=== PATIENT | female | born 1995 | race Caucasian/White ===

== ENCOUNTER 2017-04-18 10:27 | Outpatient (CLI) | payer BC ==
--- NOTE | 2017-04-18 17:59 | Non Stress Test Report ---
Non Stress Test Datetime Report Generated by CPN: 04/18/2017 17:59 DEMOGRAPHIC EGA NST: 32.2 INDICATION Indication for Study: Ordered by Provider Indication for Study (NST) Other: nst MONITORING Monitor Explained: Monitor Explained; Test Explained; Patient Verbalized Understanding Time on Monitor: 04/11/2017 11:00 Time off Monitor: 04/18/2017 11:35 NST Duration: 04414 NST INTERVENTIONS NST Interventions: PO Hydration; Reposition Patient BABY A: [id number] BABY A Movement : Present Contraction Frequency : 0 FHR Baseline : 130 Accelerations : 15X15 Decelerations : None Variability : Moderate 6-25bpm NST Review: Meets Criteria for Reactive NST NST Review and Verified By : D Bellavance RNC NST Results: Reactive NST REPORT Report Trigger: Send Report
== END 2017-04-18 11:35 | disposition home or self-care (01) ==
LOC: LC 10:27
PROVIDERS: ATTEND Specialist
PROC: 4A1HXCZ Monitoring of Products of Conception, Cardiac Rate, External Approach (ICD-10-PCS; principal; 2017-04-18)
DX: Z34.93 Encounter for supervision of normal pregnancy, unspecified, third trimester (principal)
CPT/HCPCS: 59025

== ENCOUNTER 2017-05-03 08:42 | Outpatient (CLI) | payer BC ==
[2017-05-03] MEDS ORDERED: RINGERS SOLUTION,LACTATED 1,000 ML IV PRN (08:52)
[2017-05-03] MEDS ORDERED: RINGERS SOLUTION,LACTATED 1,000 ML IV ONE (08:52)
[2017-05-03 09:34] LABS: APPEARANCE,URINE SLIGHTLY-CLOUDY; BILIRUBIN,URINE NEGATIVE (NEGATIVE); GLUCOSE, URINE NEGATIVE (NEGATIVE); KETONES,URINE NEGATIVE (NEGATIVE); LEUKOCYTE ESTERASE,URINE SMALL (NEGATIVE); NITRITE,URINE NEGATIVE (NEGATIVE); PROTEIN,URINE NEGATIVE (NEGATIVE); URINE SPECIFIC GRAVITY 1.008; UROBILINOGEN,URINE NEGATIVE mg/dL (<2.0)
[2017-05-03 09:36] LABS: URINE BARBITURATES SCREEN NEGATIVE; URINE METHADONE SCREEN NEGATIVE; URINE OPIATES LOW NEGATIVE; URINE PHENCYCLIDINE SCREEN NEGATIVE
[2017-05-03 09:55] LABS: ABSOLUTE EOSINOPHILS # (AUTO) 0.1 10^3/uL (0.0-0.6); ABSOLUTE LYMPHOCYTES (AUTO) 1.2 10^3/uL (0.5-4.7); ABSOLUTE MONOCYTES (AUTO) 0.5 10^3/uL (0.1-1.4); ABSOLUTE NEUT (AUTO) 4.4 10^3/uL (1.7-8.2); BASOPHILS % (AUTO) 0.4 % (0-2); EOSINOPHILS % (AUTO) 1.9 % (0-6); HEMATOCRIT 37.4 % (36.0-47.0); HEMOGLOBIN 12.9 g/dL (12.0-15.5); HGB HCT DIFFERENCE 1.3; LYMPHOCYTES % (AUTO) 19.3 % (13-45); MEAN CORPUSCULAR HEMOGLOBIN 29.5 pg (27.0-33.4); MEAN CORPUSCULAR HGB CONC 34.5 g/dL (32.0-36.0); MEAN CORPUSCULAR VOLUME 86 fl (80-97); RED BLOOD COUNT 4.37 10^6/uL (3.72-5.28); RED CELL DISTRIBUTION WIDTH 13.5 % (11.5-14.0); SEGMENTED NEUTROPHILS % (AUTO) 70.4 % (42-78); WHITE BLOOD COUNT 6.2 10^3/uL (4.0-10.5)
[2017-05-03] MEDS ORDERED: TERBUTALINE SULFATE INJ/PF 1 MG/1 ML SDV ONE (10:04)
--- NOTE | 2017-05-03 12:23 | Non Stress Test Report ---
Non Stress Test Datetime Report Generated by CPN: 05/03/2017 12:22 DEMOGRAPHIC EGA NST: 36.6 INDICATION Indication for Study: Ordered by Provider MONITORING Monitor Explained: Monitor Explained; Test Explained; Patient Verbalized Understanding Time on Monitor: 05/03/2017 09:14 Time on Monitor: 05/03/2017 11:26 Time off Monitor: 05/03/2017 12:04 Time off Monitor: 05/03/2017 12:04 NST Duration: 170 NST INTERVENTIONS NST Interventions: IV Fluids Physician Notified NST: DrLeona Farhad BABY A: [id number] BABY A Movement : Present Contraction Frequency : 0 Contraction Frequency : none FHR Baseline : 140 Accelerations : 15X15 Decelerations : None Variability : Moderate 6-25bpm Variability : Moderate 6-25bpm NST Review: Meets Criteria for Reactive NST NST Review and Verified By : Siva Red RN NST Results: Reactive NST REPORT Report Trigger: Send Report
== END 2017-05-03 12:13 | disposition home or self-care (01) ==
LOC: LC 08:42
PROVIDERS: ATTEND Obstetrics & Gynecology
DX: O32.9XX1 Maternal care for malpresentation of fetus, unspecified, fetus 1 (principal); Z3A.36 36 weeks gestation of pregnancy
CPT/HCPCS: 59025; 86900; 86901; 36415; 86850; 85025; 86592; 81001; 80307; J3105

== ENCOUNTER 2017-05-10 18:23 | Outpatient (CLI) | payer BC ==
[2017-05-10 18:57] LABS: APPEARANCE,URINE SLIGHTLY-CLOUDY; BILIRUBIN,URINE NEGATIVE (NEGATIVE); GLUCOSE, URINE NEGATIVE (NEGATIVE); KETONES,URINE NEGATIVE (NEGATIVE); LEUKOCYTE ESTERASE,URINE MODERATE (NEGATIVE); NITRITE,URINE NEGATIVE (NEGATIVE); PROTEIN,URINE NEGATIVE (NEGATIVE); URINE SPECIFIC GRAVITY 1.003; UROBILINOGEN,URINE NEGATIVE mg/dL (<2.0)
[2017-05-10 19:18] LABS: URINE BARBITURATES SCREEN NEGATIVE; URINE METHADONE SCREEN NEGATIVE; URINE OPIATES LOW NEGATIVE; URINE PHENCYCLIDINE SCREEN NEGATIVE
--- NOTE | 2017-05-10 19:31 | Non Stress Test Report ---
Non Stress Test Datetime Report Generated by CPN: 05/10/2017 19:31 DEMOGRAPHIC EGA NST: 37.6 INDICATION Indication for Study: Decreased Movement; Ordered by Provider MONITORING Monitor Explained: Monitor Explained; Test Explained; Patient Verbalized Understanding Time on Monitor: 05/10/2017 18:41 Time off Monitor: 05/10/2017 19:24 NST Duration: 43 NST INTERVENTIONS NST Interventions: PO Hydration; Reposition Patient Physician Notified NST: Rodriguez BABY A: [id number] BABY A Movement : Present Contraction Frequency : none FHR Baseline : 155 Accelerations : 15X15 Decelerations : None Variability : Moderate 6-25bpm NST Review: Meets Criteria for Reactive NST NST Review and Verified By : Marilin Mensah RN NST Results: Reactive NST REPORT Report Trigger: Send Report
== END 2017-05-10 19:31 | disposition home or self-care (01) ==
LOC: LC 18:23
PROVIDERS: ATTEND Student in an Organized Health Care Education/Training Program
PROC: 4A1HXCZ Monitoring of Products of Conception, Cardiac Rate, External Approach (ICD-10-PCS; principal; 2017-05-10)
DX: O47.1 False labor at or after 37 completed weeks of gestation (principal); Z3A.37 37 weeks gestation of pregnancy
CPT/HCPCS: 59025; 80307; 81005

== ENCOUNTER 2018-03-15 20:57 | Emergency (ER) | payer BC, MEDICAID ==
[2018-03-15 21:10] VITALS: BP 132/73
--- NOTE | 2018-03-16 00:31 | ER Document Report ---
ED General - General Chief Complaint: Insect Bite Stated Complaint: POSSIBLE ALLERGIC REACTION Time Seen by Provider: 03/15/18 23:14 Notes: Patient is a 22-year-old female without chronic medical problems who presents with bilateral proximal forearms just below the level of the antecubital fossa. The patient states that she noticed these several hours ago and that they have become progressively more red and swollen since that time. She notes a mild, aching pain similar to when something has become strained. She states movement of the arms worsens the discomfort. She has not tried anything to improve the discomfort. No history of similar symptoms in the past. She states that she believes she may have done this while loading a stroller into her car. She initially thought she might be having an allergic reaction but now doubts this given the symmetry of the areas of redness on the bilateral forearms. She has not seen her general doctor regarding today's concerns. TRAVEL OUTSIDE OF THE [place] IN LAST 30 DAYS: No - Related Data Allergies/Adverse Reactions: No Known Allergies Allergy (Verified 05/23/17 11:40) Past Medical History - General Information source: Patient - Social History Smoking Status: Never Smoker Chew tobacco use (# tins/day): No Frequency of alcohol use: None Drug Abuse: None Lives with: Spouse/Significant other Family History: Reviewed & Not Pertinent Patient has suicidal ideation: No Patient has homicidal ideation: No Renal/ Medical History: Denies: Hx Peritoneal Dialysis Past Surgical History: Reports: Hx Section Review of Systems - Review of Systems Notes: Constitutional: Negative for fever. HENT: Negative for sore throat. Eyes: Negative for visual changes. Cardiovascular: Negative for chest pain. Respiratory: Negative for shortness of breath. Gastrointestinal: Negative for abdominal pain, vomiting or diarrhea. Genitourinary: Negative for dysuria. Musculoskeletal: Negative for back pain. Skin: Positive for rash. Neurological: Negative for headaches, weakness or numbness. 10 point ROS negative except as marked above and in HPI. Physical Exam - Vital signs Vitals: Temp Pulse Resp BP Pulse Ox 97.8 F 95 16 132/73 H 100 03/15/18 21:09 03/15/18 21:09 03/15/18 21:09 03/15/18 21:09 03/15/18 21:09 Interpretation: Normal Notes: PHYSICAL EXAMINATION: GENERAL: Well-appearing, well-nourished and in no acute distress. HEAD: Atraumatic, normocephalic. EYES: Pupils equal round and reactive to light, extraocular movements intact, sclera anicteric, conjunctiva are normal. ENT: nares patent, oropharynx clear without exudates. Moist mucous membranes. NECK: Normal range of motion, supple without lymphadenopathy, no stridor LUNGS: Breath sounds clear to auscultation bilaterally and equal. No wheezes rales or rhonchi. HEART: Regular rate and rhythm without murmurs ABDOMEN: Soft, nontender, normoactive bowel sounds. No guarding, no rebound. No masses appreciated. EXTREMITIES: Normal range of motion, no pitting or edema. No cyanosis. NEUROLOGICAL: No focal neurological deficits. Moves all extremities spontaneously and on command. PSYCH: Normal mood, normal affect. SKIN: Warm, Dry, normal turgor, symmetric areas of redness on the bilateral forearms just below the level of the antecubital fossae bilaterally without induration or fluctuance Course - Re-evaluation Re-evalutation: 03/16/18 04:06 Presentation appears to most consistent with bilateral soft tissue contusions likely secondary to a blunt force trauma sustained across both forearms at the same time. There is no evidence of an allergic reaction as there are no urticarial lesions on complete skin examination, no stridor, no wheezing, no vascular involvement no GI symptoms. The remainder the physical examination is otherwise completely unremarkable. I do not see any indication for labs or imaging at this time point. I have recommended NSAIDs, application of ice to the area as well as strict return precautions. At this time will discharge with return precautions and follow-up recommendations. Verbal discharge instructions given a the bedside and opportunity for questions given. Medication warnings reviewed. Patient is in agreement with this plan and has verbalized understanding of return precautions and the need for primary care follow-up in the next 24-72 hours. - Vital Signs Vital signs: Temp Pulse Resp BP Pulse Ox 97.8 F 95 16 132/73 H 100 03/15/18 21:09 03/15/18 21:09 03/15/18 21:09 03/15/18 21:09 03/15/18 21:09 Discharge - Discharge Clinical Impression: Traumatic ecchymosis of forearm Qualifiers: Encounter type: initial encounter Laterality: unspecified laterality Qualified Code(s): S50.10XA - Contusion of unspecified forearm, initial encounter Condition: Good Disposition: HOME, SELF-CARE Additional Instructions: The area of redness on her forearm appears to be likely traumatic in origin. You can apply ice to the affected area as well as take NSAIDs such as ibuprofen 600 mg every 6 hours as needed for discomfort. Return for worsening swelling, difficulty using her hands, fever, or any other symptoms that are worrisome to you. Referrals: PRINCESS STEEL MD [Primary Care Provider] - Follow up as needed
== END 2018-03-16 00:38 | disposition home or self-care (01) ==
LOC: ER 20:57
DX: S50.10XA Contusion of unspecified forearm, initial encounter (principal); X58.XXXA Exposure to other specified factors, initial encounter; R21 Rash and other nonspecific skin eruption
CPT/HCPCS: 99281

== ENCOUNTER 2018-11-18 01:36 | Emergency (ER) | payer BC, MEDICAID ==
--- NOTE | 2018-11-18 07:50 | ER Document Report ---
ED Medical Screen (RME) - General Chief Complaint: Abdominal Pain Stated Complaint: BLOOD/CLOTS IN URINE,LOWER ABDOMINAL PAIN Time Seen by Provider: 11/18/18 07:17 Primary Care Provider: ARCADIO REYNOLDS DO [Primary Care Provider] - Follow up as needed Mode of Arrival: Ambulatory Information source: Patient Notes: Patient presents emergency department with complaints of pain when she voids and noted hematuria. Reports symptoms started yesterday. Denies fever vomiting diarrhea. Denies vaginal discharge. Reports that she noted some blood when she wiped after voiding yesterday. Last night around midnight when she voided she had pain at the end of her stream and noted tiny blood clots. Reports urinary frequency. I have greeted and performed a rapid initial assessment of this patient. A comprehensive ED assessment and evaluation of the patient, analysis of test results and completion of the medical decision making process will be conducted by additional ED providers. Dictation of this chart was performed using voice recognition software; therefore, there may be some unintended grammatical errors. TRAVEL OUTSIDE OF THE [place] IN LAST 30 DAYS: No - Related Data Allergies/Adverse Reactions: No Known Allergies Allergy (Verified 05/23/17 11:40) Past Medical History Renal/ Medical History: Denies: Hx Peritoneal Dialysis Past Surgical History: Reports: Hx Section Physical Exam - Vital signs Vitals: Temp Pulse Resp BP Pulse Ox 98.0 F 93 16 138/88 H 100 11/18/18 01:40 11/18/18 01:40 11/18/18 01:40 11/18/18 01:40 11/18/18 01:40 Course - Vital Signs Vital signs: Temp Pulse Resp BP Pulse Ox 98.0 F 93 16 138/88 H 100 11/18/18 01:40 11/18/18 01:40 11/18/18 01:40 11/18/18 01:40 11/18/18 01:40 Doctor's Discharge - Discharge Referrals: ARCADIO REYNOLDS DO [Primary Care Provider] - Follow up as needed
[2018-11-18 08:14] LABS: APPEARANCE,URINE CLOUDY; BILIRUBIN,URINE NEGATIVE (NEGATIVE); COLOR,URINE AMBER; GLUCOSE, URINE NEGATIVE (NEGATIVE); KETONES,URINE NEGATIVE (NEGATIVE); LEUKOCYTE ESTERASE,URINE LARGE (NEGATIVE); NITRITE,URINE POSITIVE (NEGATIVE); PROTEIN,URINE 100 mg/dL (NEGATIVE); URINE SPECIFIC GRAVITY 1.016; UROBILINOGEN,URINE NEGATIVE mg/dL (<2.0)
[2018-11-18] MEDS ORDERED: CEPHALEXIN 500 MG CAPSULE PO ONE (08:39)
[2018-11-18] MEDS ORDERED: PHENAZOPYRIDINE HCL 200 MG TABLET PO ONE (08:40)
[2018-11-18 09:19] VITALS: BP 148/86
--- NOTE | 2018-11-18 09:48 | ER Document Report ---
Entered by AJAY ROGER SCRIBE 11/18/18 0836 Acting as scribe for:MAHAD GIL MD ED General - General Chief Complaint: Abdominal Pain Stated Complaint: BLOOD/CLOTS IN URINE,LOWER ABDOMINAL PAIN Time Seen by Provider: 11/18/18 07:17 [facility] - Follow up as needed Mode of Arrival: Ambulatory Information source: Patient Notes: Patient is a 22 year old female with no significant medical history presents to the emergency department complaining of hematuria and painful urination onset yesterday. Patient states she noticed a small amount of hematuria and pain in her suprapubic region when urinating. Patient describes the pain as a sharpness that progressively worsens as she is voiding. She states this morning, the pain worsened and she noticed a larger amount of blood in her urine with small blood clots. She describes the blood as light pink in appearance. She also reports urinary frequency with normal amount of urine output. She denies any vaginal discharge. Patient's LMP was 11/05/2018. She follows up with [facility]. TRAVEL OUTSIDE OF THE [place] IN LAST 30 DAYS: No - Related Data Allergies/Adverse Reactions: No Known Allergies Allergy (Verified 05/23/17 11:40) Past Medical History - General Information source: Patient - Social History Smoking Status: Never Smoker Frequency of alcohol use: Occasional Drug Abuse: None Family History: Reviewed & Not Pertinent Patient has suicidal ideation: No Patient has homicidal ideation: No Past Surgical History: Reports: Hx Section Review of Systems - Review of Systems Constitutional: No symptoms reported EENT: No symptoms reported Cardiovascular: No symptoms reported Respiratory: No symptoms reported Gastrointestinal: No symptoms reported Genitourinary: See HPI, Burning, Hematuria, Urgency Female Genitourinary: No symptoms reported Musculoskeletal: No symptoms reported Skin: No symptoms reported Hematologic/Lymphatic: No symptoms reported Neurological/Psychological: No symptoms reported -: Yes All other systems reviewed and negative Physical Exam - Vital signs Vitals: Temp Pulse Resp BP Pulse Ox 98.0 F 93 16 138/88 H 100 11/18/18 01:40 11/18/18 01:40 11/18/18 01:40 11/18/18 01:40 11/18/18 01:40 - Notes Notes: GENERAL: Alert, interacts well. No acute distress. HEAD: Normocephalic, atraumatic. EYES: Pupils equal, round, and reactive to light. Extraocular movements intact. ENT: Oral mucosa moist, tongue midline. NECK: Full range of motion. Supple. Trachea midline. LUNGS: Clear to auscultation bilaterally, no wheezes, rales, or rhonchi. No respiratory distress. HEART: Regular rate and rhythm. No murmurs, gallops, or rubs. ABDOMEN: Soft, suprapubic tenderness to palpation. Non-distended. Bowel sounds present in all 4 quadrants. No guarding, rigidity, or rebound. EXTREMITIES: Moves all 4 extremities spontaneously. NEUROLOGICAL: Alert and oriented x3. Normal speech. PSYCH: Normal affect, normal mood. SKIN: Warm, dry, normal turgor. No rashes or lesions noted. Course - Vital Signs Vital signs: Temp Pulse Resp BP Pulse Ox 98.7 F 82 18 148/86 H 100 11/18/18 09:18 11/18/18 09:18 11/18/18 09:18 11/18/18 09:18 11/18/18 09:18 - Laboratory Laboratory results interpreted by me: 11/18/18 07:50 Urine Protein 100 H Urine Blood LARGE H Urine Nitrite POSITIVE H Ur Leukocyte Esterase LARGE H Discharge - Discharge Clinical Impression: Hemorrhagic cystitis Condition: Stable Disposition: HOME, SELF-CARE Additional Instructions: Urinary Tract Infection: Your evaluation indicates that you have a urinary tract infection. This is due to germs growing in the bladder. This is a common problem. This infection usually responds quickly to antibiotics. Your antibiotic should be taken exactly as prescribed. Drink plenty of fluids -- three to four quarts a day. Occasionally, a bladder anesthetic will be prescribed to help stop the feeling of urgency until the antibiotic has a chance to clear the infection. This may cause your urine to be dark orange. Certain urine infections require a culture. If the doctor obtained a culture, the results will be back in two days. You should call to see if a change in treatment is needed. A repeat urinalysis after you finish treatment is often recommended. The physician will let you know if further testing is required. Call the doctor if you develop fever, chills, flank pain, inability to urinate, or blood in the urine. Prescriptions: Cephalexin Monohydrate [Keflex 500 mg Capsule] 500 mg PO TID #15 capsule Phenazopyridine HCl [Pyridium 200 mg Tablet] 200 mg PO Q8 #10 tablet Referrals: [facility] [Provider Group] - Follow up as needed Scribe Attestation: 11/18/18 08:38 I personally performed the services described in the documentation, reviewed and edited the documentation which was dictated to the scribe in my presence, and it accurately records my words and actions. I personally performed the services described in the documentation, reviewed and edited the documentation which was dictated to the scribe in my presence, and it accurately records my words and actions.
== END 2018-11-18 09:19 | disposition home or self-care (01) ==
LOC: ER 01:36
DX: N30.91 Cystitis, unspecified with hematuria (principal)
CPT/HCPCS: 99283; 87086; 81025; 87088; 81001; 87186; J3490

== ENCOUNTER 2019-09-06 08:49 | Emergency (ER) | payer BC, MEDICAID ==
[2019-09-06] MEDS ORDERED: ONDANSETRON HCL INJ/PF 4 MG/2 ML SDV IV ONE (09:18)
[2019-09-06] MEDS ORDERED: NORMAL SALINE 1000 ML 1,000 ML IV ONE (09:19)
[2019-09-06] MEDS ORDERED: FENTANYL CITRATE INJ/PF 100 MCG/2 ML AMPUL IV ONE (09:19)
--- NOTE | 2019-09-06 09:20 | ER Document Report ---
ED Medical Screen (RME) - General Chief Complaint: Abdominal Pain Stated Complaint: ABDOMINAL PAIN/CRAMPING Time Seen by Provider: 09/06/19 09:18 Mode of Arrival: Ambulatory Information source: Patient Notes: Otherwise healthy 23-year-old female presents emergency department chief complaint of sudden onset abdominal pain that began at approximately 2 AM. Patient reports the pain started in the umbilicus area and sometimes radiates down towards the right lower quadrant. She reports pain is worse with movement. She reports the pain is constant and nothing makes it better. Patient reports associated nausea without vomiting or diarrhea. Denies fevers. Exam: Tenderness noted in the periumbilical area and right lower quadrant. I have greeted and performed a rapid initial assessment of this patient. A comprehensive ED assessment and evaluation of the patient, analysis of test results and completion of the medical decision making process will be conducted by additional ED providers. I have specifically instructed the patient or family members with the patient to immediately return to any nursing staff should anything change in the patient's condition or with their chief complaint. TRAVEL OUTSIDE OF THE [place] IN LAST 30 DAYS: No - Related Data Allergies/Adverse Reactions: No Known Allergies Allergy (Verified 09/06/19 09:00) Home Medications: Past Medical History - Social History Chew tobacco use (# tins/day): No Frequency of alcohol use: None Drug Abuse: None Renal/ Medical History: Denies: Hx Peritoneal Dialysis Past Surgical History: Reports: Hx Section Physical Exam - Vital signs Vitals: Temp Pulse Resp BP Pulse Ox 98.7 F 98 20 129/76 H 99 09/06/19 08:56 09/06/19 08:56 09/06/19 08:56 09/06/19 08:56 09/06/19 08:56 Course - Vital Signs Vital signs: Temp Pulse Resp BP Pulse Ox 98.7 F 98 20 129/76 H 99 09/06/19 08:56 09/06/19 08:56 09/06/19 08:56 09/06/19 08:56 09/06/19 08:56
[2019-09-06 09:30] LABS: ABSOLUTE EOSINOPHILS # (AUTO) 0.1 10^3/uL (0.0-0.6); ABSOLUTE LYMPHOCYTES (AUTO) 0.7 10^3/uL (0.5-4.7); ABSOLUTE MONOCYTES (AUTO) 0.4 10^3/uL (0.1-1.4); ABSOLUTE NEUT (AUTO) 6.1 10^3/uL (1.7-8.2); BASOPHILS % (AUTO) 0.1 % (0-2); EOSINOPHILS % (AUTO) 0.8 % (0-6); HEMATOCRIT 40.7 % (36.0-47.0); HEMOGLOBIN 13.4 g/dL (12.0-15.5); LYMPHOCYTES % (AUTO) 9.5 % (13-45); MEAN CORPUSCULAR HEMOGLOBIN 25.4 pg (27.0-33.4); MEAN CORPUSCULAR VOLUME 77 fl (80-97); PLATELET COUNT 271 10^3/uL (150-450); RED CELL DISTRIBUTION WIDTH 16.5 % (11.5-14.0); SEGMENTED NEUTROPHILS % (AUTO) 84.6 % (42-78); TOTAL CELLS COUNTED % (AUTO) 100 %; WHITE BLOOD COUNT 7.2 10^3/uL (4.0-10.5)
[2019-09-06 09:46] LABS: APPEARANCE,URINE SLIGHTLY-CLOUDY; BILIRUBIN,URINE NEGATIVE (NEGATIVE); COLOR,URINE YELLOW; GLUCOSE, URINE NEGATIVE (NEGATIVE); KETONES,URINE NEGATIVE (NEGATIVE); LEUKOCYTE ESTERASE,URINE TRACE (NEGATIVE); NITRITE,URINE NEGATIVE (NEGATIVE); PROTEIN,URINE NEGATIVE (NEGATIVE); URINE SPECIFIC GRAVITY 1.014; UROBILINOGEN,URINE NEGATIVE mg/dL (<2.0)
[2019-09-06 09:50] LABS: ALBUMIN 4.1 g/dL (3.5-5.0); ALKALINE PHOSPHATASE 65 U/L (38-126); ANION GAP 10 (5-19); ASPARTATE AMINO TRANSFERASE 20 U/L (14-36); BILIRUBIN,DIRECT 0.2 mg/dL (0.0-0.4); BILIRUBIN,TOTAL 0.5 mg/dL (0.2-1.3); BLOOD UREA NITROGEN 9 mg/dL (7-20); CALCIUM 9.1 mg/dL (8.4-10.2); CARBON DIOXIDE 23 mmol/L (22-30); CHLORIDE 104 mmol/L (98-107); GLUCOSE 98 mg/dL (75-110); POTASSIUM 4.2 mmol/L (3.6-5.0); TOTAL PROTEIN 7.5 g/dL (6.3-8.2)
--- NOTE | 2019-09-06 10:37 | ER Document Report ---
ED GI/ - General Chief Complaint: Abdominal Pain Stated Complaint: ABDOMINAL PAIN/CRAMPING Time Seen by Provider: 09/06/19 09:18 Primary Care Provider: TERESA ORDOÑEZ MD [Primary Care Provider] - Follow up as needed Mode of Arrival: Ambulatory Information source: Patient Notes: HPI: Patient is a 23-year-old -0-0-1 at 8 weeks by dates who presents today with some upper and lower abdominal "cramping" that is been intermittent. No nausea or vomiting. 2 bouts of nonbloody diarrhea. No dysuria, vaginal discharge, or fevers. She does state some upper and lower body "cramping". ROS: See HPI All other review of systems reviewed and otherwise negative Reviewed vital signs and nursing note as charted by RN. PHYSICAL EXAM: CONSTITUTIONAL: Alert and oriented and responds appropriately to questions. Well-appearing; well-nourished HEAD: Normocephalic; atraumatic EYES: PERRL; sclerae non-icteric ENT: Normal nose; no rhinorrhea; moist mucous membranes; pharynx without lesions noted NECK: Supple without meningismus; non-tender; no cervical lymphadenopathy, no masses CARD: Regular rate and rhythm; no murmurs; symmetric distal pulses RESP: Normal chest excursion without splinting or tachypnea; breath sounds clear and equal bilaterally; no wheezes, no rhonchi, no rales ABD/GI: Normal bowel sounds; non-distended; soft, patient has some mild tenderness actually to the left lower quadrant. No right lower quadrant or upper abdominal tenderness. No rebound or guarding. No palpable fundus BACK: The back appears normal and is non-tender to palpation EXT: Normal ROM in all joints; non-tender to palpation; no edema SKIN: No acute lesions noted NEURO: CN 2-12 intact; 5/5 bilateral upper and lower extremity strength with sensation intact to light touch PSYCH: The patient's mood and manner are appropriate. Grooming and personal hygiene are appropriate. TRAVEL OUTSIDE OF THE [place] IN LAST 30 DAYS: No - Related Data Allergies/Adverse Reactions: No Known Allergies Allergy (Verified 09/06/19 09:00) Home Medications: Past Medical History - General Information source: Patient - Social History Smoking Status: Never Smoker Chew tobacco use (# tins/day): No Frequency of alcohol use: None Drug Abuse: None Family History: Reviewed & Not Pertinent Patient has suicidal ideation: No Patient has homicidal ideation: No Renal/ Medical History: Denies: Hx Peritoneal Dialysis Past Surgical History: Reports: Hx Section Physical Exam - Vital signs Vitals: Temp Pulse Resp BP Pulse Ox 98.7 F 98 20 129/76 H 99 09/06/19 08:56 09/06/19 08:56 09/06/19 08:56 09/06/19 08:56 09/06/19 08:56 Course - Re-evaluation Re-evalutation: 09/06/19 10:37 Given the above history and physical examination we will order pelvic examination, ultrasound, basic labs and urinalysis, and reassess. There is a very high prevalence of a viral-like syndrome currently causing bouts of d iarrhea. I would like to check to make sure that there was no ectopic . Patient has no right lower quadrant tenderness upon repeat examination. 09/06/19 13:38 Labs, pelvic exam labs, urinalysis, quantitative hCG, and ultrasound as recorded. Patient currently denies any pain. Vital signs are stable. Ultrasound as recorded showing an 8-week 3-day gestation. Still no vaginal bleeding. Patient will be discharged home with strict return precautions and follow-up with the primary FINGERNAIL SCULPTURER. - Vital Signs Vital signs: Temp Pulse Resp BP Pulse Ox 98.7 F 98 20 129/76 H 99 09/06/19 08:56 09/06/19 08:56 09/06/19 08:56 09/06/19 08:56 09/06/19 08:56 - Laboratory Result Diagrams: 09/06/19 09:15 09/06/19 09:15 Laboratory results interpreted by me: 09/06/19 09/06/19 09/06/19 09:15 09:15 09:15 RBC 5.30 H MCV 77 L MCH 25.4 L RDW 16.5 H Lymph % (Auto) 9.5 L Seg Neutrophils % 84.6 H Sodium 136.6 L Creatinine 0.43 L Beta HCG, Quant 097193.00 H Ur Leukocyte Esterase TRACE H Discharge - Discharge Clinical Impression: Abdominal cramping Diarrhea Qualifiers: Diarrhea type: unspecified type Qualified Code(s): R19.7 - Diarrhea, unspecified Qualifiers: Weeks of gestation: 8 weeks Qualified Code(s): Z3A.08 - 8 weeks gestation of Condition: Good Disposition: HOME, SELF-CARE Additional Instructions: Come back immediately for any increased pain, change in location or quality of p ain, vaginal bleeding, weakness or numbness, fevers, or any other acute problems. Please follow-up with the primary care physician as we have discussed. Referrals: TERESA ORDOÑEZ MD [Primary Care Provider] - Follow up as needed
--- NOTE | 2019-09-06 10:57 | ER Document Report ---
Doctor's Note Notes: 09/06/19 10:56 Pelvic exam performed. Normal external genitalia noted. Thick white discharge noted in the vaginal vault. No cervical motion tenderness, no adnexal tenderness. Cervix closed. Patient tolerated well. Specimens sent to lab.
[2019-09-06 11:10] LABS: BACTERIA (WET MOUNT) 3+ BACTERIA SEEN; RBCS (WET MOUNT) RARE RBCS SEEN; T.VAGINALIS (WET MOUNT) NO TRICHOMONAS SEEN; WBCS (WET MOUNT) FEW WBCS SEEN; YEAST (WET MOUNT) NO YEAST SEEN
[2019-09-06 12:42] LABS: CHLAM PCR NOT DETECTED (NOT DETECT)
--- NOTE | 2019-09-06 13:33 | RADIOLOGY REPORT (SQ) ---
EXAM DESCRIPTION: U/S OB TRANSVAG W/DOPPLER COMPLETED DATE/TIME: 09/06/2019 12:43 pm REASON FOR STUDY: 33; pain COMPARISON: None. TECHNIQUE: Transvaginal static and realtime grayscale images acquired of the pelvis. Additional nikolas cted spectral and color Doppler images recorded. All images stored on PACs. bHC, 830 CLINICAL DATES: EGA 7 weeks 6 days LIMITATIONS: None. FINDINGS: FETUS: Single Living intrauterine noted at the right horn of the bicornuate [place]. ULTRASOUND EGA: 8 weeks 3 days ULTRASOUND YAN: 04/14/2020 EFW: Not applicable less than 20 weeks. CRL: 1.85 cm FHR: 180 beats per minute. AMNIOTIC FLUID: Adequate amount. PLACENTA: Not yet developed due to early gestation. SUBCHORIONIC BLEED: Yes. SIZE OF BLEED: 7 x 7 x 10 mm. UTERUS: There is a bicornuate uterus. The right side of the uterus measures 10.0 x 6.8 x 6.1 cm. Th e left side of the uterus measures 10 x 5.2 x 5.1 cm. An intrauterine gestation is noted at the right horn. The endometrium at the left horn measures 2.9 cm in double wall thickness with a 5 x 3 x 3 mm fluid c ollection. CERVICAL LENGTH: 3.0 cm. Closed. RIGHT ADNEXA: The right ovary measures 3.7 x 2.2 x 2.5 cm. Flow by Doppler was shown to the right ov jaya. There is a 2.4 x 1.5 x 1.6 cm corpus luteum cyst. LEFT ADNEXA: The left ovary measures 2.7 x 1 .7 x 1.4 cm. Flow by Doppler was shown to the left ovary. FREE FLUID: Small amount of free pelvic fluid. IMPRESSION: 1. BICORNUATE UTERUS. 2. LIVING INTRAUTERINE AT THE RIGHT HORN.EGA 8 WEEKS 3 DAYS. SMALL SUBCHORIONIC HEMORRHAGE . 3. THICKENED ENDOMETRIUM AT THE LEFT HORN WITH A SMALL FLUID COLLECTION. Trimester of : First trimester - 0 to 13 weeks. TECHNICAL DOCUMENTATION: JOB ID: [id number] [employer]- All Rights Reserved rev-12/14 Reading location - IP/workstation name: [email or web address]
[2019-09-06 14:11] VITALS: BP 114/66
== END 2019-09-06 14:09 | disposition home or self-care (01) ==
LOC: ER 08:49
DX: O26.891 Other specified pregnancy related conditions, first trimester (principal); R10.9 Unspecified abdominal pain; R19.7 Diarrhea, unspecified; R10.10 Upper abdominal pain, unspecified; R10.30 Lower abdominal pain, unspecified; Z3A.08 8 weeks gestation of pregnancy
CPT/HCPCS: 36415; 87210; 84702; 83690; 85025; 80053; 81001; 87491; 87591; 76817; 93976; J3010; J2405; J7030; 96361; 96374; 96375; 99284

== ENCOUNTER 2020-02-17 17:43 | Outpatient (CLI) | payer BC, MEDICAID ==
[2020-02-17 18:31] LABS: APPEARANCE,URINE CLEAR; BILIRUBIN,URINE NEGATIVE (NEGATIVE); COLOR,URINE YELLOW; GLUCOSE, URINE NEGATIVE (NEGATIVE); KETONES,URINE NEGATIVE (NEGATIVE); LEUKOCYTE ESTERASE,URINE NEGATIVE (NEGATIVE); NITRITE,URINE NEGATIVE (NEGATIVE); PROTEIN,URINE NEGATIVE (NEGATIVE); UROBILINOGEN,URINE NEGATIVE mg/dL (<2.0)
[2020-02-17 18:44] LABS: URINE AMPHETAMINES SCREEN NEGATIVE; URINE BARBITURATES SCREEN NEGATIVE; URINE BENZODIAZEPINES SCREEN NEGATIVE; URINE COCAINE SCREEN NEGATIVE; URINE MARIJUANA (THC) SCREEN NEGATIVE; URINE METHADONE SCREEN NEGATIVE; URINE PHENCYCLIDINE SCREEN NEGATIVE
--- NOTE | 2020-02-17 19:55 | RADIOLOGY REPORT (SQ) ---
EXAM DESCRIPTION: U/S OB LIMITED IMAGES COMPLETED DATE/TIME: 02/17/2020 7:05 pm REASON FOR STUDY: TVUS for cervical length COMPARISON: None. TECHNIQUE: Limited transvaginal grayscale ultrasound for evaluation of specific requested obstetrica l parameters. LIMITATIONS: None. FINDINGS: CERVICAL LENGTH: 4.1 cm. Closed. JENNA: 13.2 cm. Cm. FHR: 147 beats per minute. PRESENTATION: Breech PLACENTA: Anterior grade 2 ANATOMY: Not assessed. OTHER: Intrauterine gestation of 31 weeks 2 days. IMPRESSION: LIMITED OBSTETRICAL ULTRASOUND WITH MEASURED PARAMETERS DELINEATED ABOVE. Trimester of : Third trimester - 28 weeks to delivery. TECHNICAL DOCUMENTATION: JOB ID: [id number] 2010 [employer]- All Rights Reserved Reading location - IP/workstation name: [email or web address]
== END 2020-02-17 19:10 | disposition home or self-care (01) ==
LOC: LC 17:43
PROVIDERS: ATTEND Obstetrics & Gynecology
DX: Z34.93 Encounter for supervision of normal pregnancy, unspecified, third trimester (principal); Z3A.31 31 weeks gestation of pregnancy
CPT/HCPCS: 76815; 80307; 81001; 84112

== ENCOUNTER 2020-03-15 08:39 | Outpatient (CLI) | payer BC, MEDICAID ==
[2020-03-15 09:30] LABS: BACTERIA (WET MOUNT) 4+ BACTERIA SEEN; EPITHELIALS (WET MOUNT) 3+ EPITHELIALS SEEN; RBCS (WET MOUNT) 3+ RBCS SEEN; T.VAGINALIS (WET MOUNT) NO TRICHOMONAS SEEN; WBCS (WET MOUNT) 2+ WBCS SEEN; YEAST (WET MOUNT) NO YEAST SEEN
[2020-03-15 09:32] LABS: APPEARANCE,URINE CLEAR; BILIRUBIN,URINE NEGATIVE (NEGATIVE); COLOR,URINE YELLOW; GLUCOSE, URINE NEGATIVE (NEGATIVE); KETONES,URINE NEGATIVE (NEGATIVE); LEUKOCYTE ESTERASE,URINE NEGATIVE (NEGATIVE); NITRITE,URINE NEGATIVE (NEGATIVE); PROTEIN,URINE NEGATIVE (NEGATIVE); URINE SPECIFIC GRAVITY 1.009; UROBILINOGEN,URINE NEGATIVE mg/dL (<2.0)
[2020-03-15 09:51] LABS: URINE AMPHETAMINES SCREEN NEGATIVE; URINE BARBITURATES SCREEN NEGATIVE; URINE BENZODIAZEPINES SCREEN NEGATIVE; URINE COCAINE SCREEN NEGATIVE; URINE MARIJUANA (THC) SCREEN NEGATIVE; URINE METHADONE SCREEN NEGATIVE; URINE PHENCYCLIDINE SCREEN NEGATIVE
[2020-03-15] MEDS ORDERED: HYDROXYZINE PAMOATE 50 MG CAPSULE PO ONE (10:20)
[2020-03-15] MEDS ORDERED: HYDROXYZINE PAMOATE 50 MG CAPSULE ONE (10:20)
[2020-03-15 10:58] LABS: CHLAM PCR NOT DETECTED (NOT DETECT)
--- NOTE | 2020-03-15 11:14 | Non Stress Test Report ---
Non Stress Test Datetime Report Generated by CPN: 03/15/2020 11:14 DEMOGRAPHIC EGA NST: 35.1 INDICATION Indication for Study (NST) Other: IUP @ 35.1 wks VITAL SIGNS Temperature - NST: 97.3 Pulse - NST: 82 RESP - NST: 18 NBPSYS NST: 125 NBPDIA NST: 76 MONITORING Monitor Explained: Monitor Explained; Test Explained; Patient Verbalized Understanding Time on Monitor: 03/15/2020 08:55 Time off Monitor: 03/15/2020 11:08 NST Duration: 133 NST INTERVENTIONS NST Interventions: PO Hydration; Reposition Patient Physician Notified NST: Dr. Branden BABY A: [id number] BABY A Movement : Present Contraction Frequency : irregular FHR Baseline : 135 Accelerations : 15X15 Decelerations : None Variability : Moderate 6-25bpm NST Review: Meets Criteria for Reactive NST NST Review and Verified By : MMelley,RN NST Results: Reactive NST REPORT Report Trigger: Send Report
== END 2020-03-15 11:16 | disposition home or self-care (01) ==
LOC: LC 08:39
PROVIDERS: ATTEND Obstetrics & Gynecology
DX: O47.03 False labor before 37 completed weeks of gestation, third trimester (principal); Z3A.35 35 weeks gestation of pregnancy; Z02.83 Encounter for blood-alcohol and blood-drug test
CPT/HCPCS: 59025; 80307; 81001; 87210; 87491; 87591

== ENCOUNTER 2020-03-21 11:11 | Outpatient (CLI) | payer BC, MEDICAID ==
[2020-03-21] MEDS ORDERED: HYDROXYZINE PAMOATE 50 MG CAPSULE PO ONE (11:44)
[2020-03-21] MEDS ORDERED: ACETAMINOPHEN 325 MG TABLET PO ONE (11:44)
[2020-03-21] MEDS ORDERED: ACETAMINOPHEN 325 MG TABLET ONE ×2 (11:49→11:53)
[2020-03-21] MEDS ORDERED: HYDROXYZINE PAMOATE 50 MG CAPSULE ONE (11:49)
--- NOTE | 2020-03-21 11:50 | Non Stress Test Report ---
Non Stress Test Datetime Report Generated by CPN: 03/21/2020 11:49 DEMOGRAPHIC EGA NST: 36.0 INDICATION Indication for Study (NST) Other: UC MONITORING Monitor Explained: Monitor Explained; Test Explained; Patient Verbalized Understanding Time on Monitor: 03/21/2020 11:26 Time off Monitor: 03/21/2020 11:47 NST Duration: 21 NST INTERVENTIONS NST Interventions: None Physician Notified NST: Dr Branden BABY A: [id number] BABY A Movement : Present Contraction Frequency : irregular FHR Baseline : 140 Accelerations : 15X15 Decelerations : None Variability : Moderate 6-25bpm NST Review: Meets Criteria for Reactive NST NST Review and Verified By : Valentina Wood RN NST Results: Reactive NST COMMENTS NST Comments: MD on unit NST REPORT Report Trigger: Send Report
[2020-03-21 11:59] LABS: APPEARANCE,URINE CLEAR; BILIRUBIN,URINE NEGATIVE (NEGATIVE); COLOR,URINE STRAW; GLUCOSE, URINE NEGATIVE (NEGATIVE); KETONES,URINE NEGATIVE (NEGATIVE); LEUKOCYTE ESTERASE,URINE NEGATIVE (NEGATIVE); NITRITE,URINE NEGATIVE (NEGATIVE); PROTEIN,URINE NEGATIVE (NEGATIVE); URINE SPECIFIC GRAVITY 1.003; UROBILINOGEN,URINE NEGATIVE mg/dL (<2.0)
[2020-03-21 12:38] LABS: URINE AMPHETAMINES SCREEN NEGATIVE; URINE BARBITURATES SCREEN NEGATIVE; URINE BENZODIAZEPINES SCREEN NEGATIVE; URINE COCAINE SCREEN NEGATIVE; URINE MARIJUANA (THC) SCREEN NEGATIVE; URINE METHADONE SCREEN NEGATIVE; URINE PHENCYCLIDINE SCREEN NEGATIVE
== END 2020-03-21 12:07 | disposition home or self-care (01) ==
LOC: LC 11:11
PROVIDERS: ATTEND Obstetrics & Gynecology
DX: O46.93 Antepartum hemorrhage, unspecified, third trimester (principal); Z3A.36 36 weeks gestation of pregnancy
CPT/HCPCS: 80307; 81001

== ENCOUNTER 2020-03-28 00:53 | Outpatient (CLI) | payer MEDICAID ==
[2020-03-28 01:47] LABS: APPEARANCE,URINE CLEAR; BILIRUBIN,URINE NEGATIVE (NEGATIVE); COLOR,URINE STRAW; GLUCOSE, URINE NEGATIVE (NEGATIVE); KETONES,URINE NEGATIVE (NEGATIVE); LEUKOCYTE ESTERASE,URINE NEGATIVE (NEGATIVE); NITRITE,URINE NEGATIVE (NEGATIVE); PROTEIN,URINE NEGATIVE (NEGATIVE); URINE SPECIFIC GRAVITY 1.006; UROBILINOGEN,URINE NEGATIVE mg/dL (<2.0)
[2020-03-28 02:12] LABS: URINE AMPHETAMINES SCREEN NEGATIVE; URINE BARBITURATES SCREEN NEGATIVE; URINE BENZODIAZEPINES SCREEN NEGATIVE; URINE COCAINE SCREEN NEGATIVE; URINE METHADONE SCREEN NEGATIVE; URINE PHENCYCLIDINE SCREEN NEGATIVE
[2020-03-28 02:33] LABS: URINE MARIJUANA (THC) SCREEN NEGATIVE
--- NOTE | 2020-03-28 02:39 | Non Stress Test Report ---
Non Stress Test Datetime Report Generated by CPN: 03/28/2020 02:38 DEMOGRAPHIC EGA NST: 37.0 INDICATION Indication for Study (NST) Other: labor check URINE RESULTS Urine Protein, NST: Negative Urine Ketones - NST: Negative Urine Glucose - NST: Negative Urine Blood - NST: Positive MONITORING Monitor Explained: Monitor Explained; Test Explained; Patient Verbalized Understanding Time on Monitor: 03/28/2020 01:15 Time off Monitor: 03/28/2020 02:09 NST Duration: 54 NST INTERVENTIONS NST Interventions: PO Hydration BABY A: [id number] BABY A Movement : Present Contraction Frequency : occasional FHR Baseline : 145 Accelerations : 15X15 Decelerations : None Variability : Moderate 6-25bpm NST Review: Meets Criteria for Reactive NST NST Review and Verified By : Michel Bennett RN NST Results: Reactive NST REPORT Report Trigger: Send Report
== END 2020-03-28 02:17 | disposition home or self-care (01) ==
LOC: LC 00:53
PROVIDERS: ATTEND Obstetrics & Gynecology
DX: O47.1 False labor at or after 37 completed weeks of gestation (principal); R51 Headache; R42 Dizziness and giddiness; Z3A.37 37 weeks gestation of pregnancy; R11.0 Nausea
CPT/HCPCS: 59025; 80307; 81001; 82962

== ENCOUNTER 2020-04-13 04:32 | Inpatient (IN) | payer BC, MEDICAID ==
[2020-04-08 08:27] LABS: APPEARANCE,URINE CLEAR; BILIRUBIN,URINE NEGATIVE (NEGATIVE); COLOR,URINE YELLOW; GLUCOSE, URINE NEGATIVE (NEGATIVE); KETONES,URINE NEGATIVE (NEGATIVE); LEUKOCYTE ESTERASE,URINE NEGATIVE (NEGATIVE); NITRITE,URINE NEGATIVE (NEGATIVE); PROTEIN,URINE NEGATIVE (NEGATIVE); URINE SPECIFIC GRAVITY 1.005; UROBILINOGEN,URINE NEGATIVE mg/dL (<2.0)
[2020-04-08 08:37] LABS: URINE AMPHETAMINES SCREEN NEGATIVE; URINE BARBITURATES SCREEN NEGATIVE; URINE BENZODIAZEPINES SCREEN NEGATIVE; URINE COCAINE SCREEN NEGATIVE; URINE MARIJUANA (THC) SCREEN NEGATIVE; URINE METHADONE SCREEN NEGATIVE; URINE PHENCYCLIDINE SCREEN NEGATIVE
[2020-04-12 13:19] LABS: ABSOLUTE EOSINOPHILS # (AUTO) 0.1 10^3/uL (0.0-0.6); ABSOLUTE LYMPHOCYTES (AUTO) 1.2 10^3/uL (0.5-4.7); ABSOLUTE MONOCYTES (AUTO) 0.3 10^3/uL (0.1-1.4); ABSOLUTE NEUT (AUTO) 4.5 10^3/uL (1.7-8.2); BASOPHILS % (AUTO) 0.2 % (0-2); EOSINOPHILS % (AUTO) 1.3 % (0-6); HEMATOCRIT 33.8 % (36.0-47.0); HEMOGLOBIN 11.3 g/dL (12.0-15.5); LYMPHOCYTES % (AUTO) 19.5 % (13-45); MEAN CORPUSCULAR HEMOGLOBIN 26.2 pg (27.0-33.4); MEAN CORPUSCULAR HGB CONC 33.3 g/dL (32.0-36.0); MEAN CORPUSCULAR VOLUME 79 fl (80-97); MONOCYTES % (AUTO) 4.9 % (3-13); PLATELET COUNT 281 10^3/uL (150-450); RED BLOOD COUNT 4.31 10^6/uL (3.72-5.28); RED CELL DISTRIBUTION WIDTH 15.9 % (11.5-14.0); SEGMENTED NEUTROPHILS % (AUTO) 74.1 % (42-78); TOTAL CELLS COUNTED % (AUTO) 100 %
[2020-04-13] MEDS ORDERED: CEFAZOLIN 2 GM/D5W RTU 2 GM/50 ML RTUPB IV PRN (05:00)
[2020-04-13] MEDS ORDERED: LIDOCAINE 0.5% INJ-PF (5 MG/ML) 50 ML SDV SUBCUT PRN (05:00)
[2020-04-13] MEDS ORDERED: RINGERS SOLUTION,LACTATED 2,000 ML IV PRN (05:00)
[2020-04-13] MEDS ORDERED: LACTATED RINGERS 1000 ML IV PRN (05:00)
[2020-04-13] MEDS ORDERED: OXYTOCIN/0.9 % SODIUM CHLORIDE 30 UNIT/500 ML RTUINJ ONE (07:42)
[2020-04-13] MEDS ORDERED: PHENYLEPHRINE HCL INJ/PF 10 MG/1 ML SDV ONE (07:42)
[2020-04-13] MEDS ORDERED: MIDAZOLAM 2 MG/2 ML INJ ONE (07:42)
[2020-04-13] MEDS ORDERED: OXYTOCIN 10 UNIT/ML VIAL ONE (07:42)
[2020-04-13] MEDS ORDERED: CITRIC ACID/SODIUM CITRATE ORAL SOLN 15 ML UDCUP ONE (07:43)
[2020-04-13] MEDS ORDERED: BUPIVACAINE HCL 0.25 % INJ/PF (2.5 MG/1 ML) 30 ML VIAL ONE (07:43)
[2020-04-13] MEDS ORDERED: ONDANSETRON HCL INJ/PF 4 MG/2 ML SDV ONE (07:43)
[2020-04-13] MEDS ORDERED: FENTANYL CITRATE INJ/PF 100 MCG/2 ML AMPUL IV PRN ×3 (08:26)
[2020-04-13] MEDS ORDERED: MORPHINE SULFATE 10 MG/ML INJ IV PRN (08:26)
[2020-04-13] MEDS ORDERED: PROMETHAZINE HCL INJ 25 MG/1 ML VIAL IV PRN ×2 (08:26→09:04)
[2020-04-13] MEDS ORDERED: DIPHENHYDRAMINE HCL 50 MG/ML VIAL IV PRN (08:26)
[2020-04-13] MEDS ORDERED: HYDROMORPHONE HCL INJ/PF 2 MG/ML AMPULE IV PRN (09:04)
[2020-04-13] MEDS ORDERED: OXYTOCIN/0.9 % SODIUM CHLORIDE 30 UNIT/500 ML RTUINJ IV PRN (09:04)
[2020-04-13] MEDS ORDERED: ACETAMINOPHEN 325 MG TABLET PO PRN (09:04)
[2020-04-13] MEDS ORDERED: OXYCODONE-ACETAMINOPHEN 5-325 MG TABLET PO PRN (09:04)
[2020-04-13] MEDS ORDERED: RINGERS SOLUTION,LACTATED 1,000 ML IV PRN (09:04)
[2020-04-13] MEDS ORDERED: MEASLES,MUMPS&RUBELLA VACC/PF 0.5 ML VIAL SUBCUT PRN (09:04)
[2020-04-13] MEDS ORDERED: DIPH/PERTUSS(ACELL)/TETANUS VAC/PF 0.5 ML SYR (>=10YO) IM PRN (09:04)
[2020-04-13] MEDS ORDERED: ACETAMINOPHEN 1,000 MG/100 ML RTUPB IV PRN (09:04)
--- NOTE | 2020-04-13 09:09 | Operative Report ---
Operative Report DATE OF SURGERY: 04/13/20 PREOPERATIVE DIAGNOSIS: Repeat and desires tubal ligation with Filshie clips. POSTOPERATIVE DIAGNOSIS: Same OPERATION: Repeat via low transverse uterine incision and bilateral Filshie clip application SURGEON: PRINCESS STEEL ANESTHESIA: Spinal TISSUE REMOVED OR ALTERED: Placenta and fallopian tubes COMPLICATIONS: None ESTIMATED BLOOD LOSS: 400 cc INTRAOPERATIVE FINDINGS: Viable crying at delivery. Normal fallopian tubes. The uterus was more distended on the patient's right than on the left with a distended right uterine horn. PROCEDURE: Patient was taken to the OR and placed in supine position after her spinal anest hesia. She is prepared and draped in sterile fashion. Lopez was placed for drainage of the bladder. Low transverse incision was made and carried down the level of the fascia. The fascial incision was made with knife and extended bilaterally with curved Woodruff scissors. The fascia was off the rectus muscles using sharp and blunt dissection. The rectus muscles are in the midline. The peritoneum was entered without incident. Bladder blade was placed in uterine segment was identified. A low transverse incision was made creating a bladder flap. Bladder blade was placed low transverse uterine incision was made with the knife and extended with fingertips. The baby was delivered with some fundal pressure. Mouth and nose were suctioned free. The cord is doubly clamped and cut. Baby is passed off to the tobacco grower in attendance. The placenta was manually extracted with trailing membranes. The uterus was externalized wrapped in a moist lap sponge. Uterine contents wiped free. Uterus was closed with a running locking layer of 0 chromic suture using the second layer to imbricate the first completing a double layer closure of the uterus. The serosa was closed with a running 2-0 chromic stitch. A Filshie clip was placed across the mid isthmic portion of each tube after identifying the fimbria. The pelvis was irrigated and suctioned free of fluid the uterus was replaced in the abdomen. The abdominal wall peritoneum was closed with running 2-0 chromic stitch. Fascia was closed with a running 0 Vicryl in 2 segments. Edouard's layer was brought together with 0 plain gut stitch and the skin was closed with running subcuticular 4-0 undyed Vicryl stitch. The wound was dressed mother and baby did well.
--- NOTE | 2020-04-13 09:39 | Birth Certificate Data ---
Cert Data Datetime Report Generated by CPN: 04/13/2020 09:39 CERTIFICATE DATA 47a. Care: Yes (02/17/2020 17:57:Lachelle Marquez RN) 48b. Now Livin (02/17/2020 17:57:Brissa Desouza RN) RISK FACTORS IN THIS 49a. Diabetes: No (02/17/2020 17:57:Lachelle Marquez RN) 49b. Hypertension: No (02/17/2020 17:57:Lachelle Marquez RN) 49c. Previous Births: 0 (02/17/2020 17:57:Kendra Watson RN) 49d. Stillborns: No (02/17/2020 17:57:Lachelle Marquez RN) 49d. IUGR: No (02/17/2020 17:57:Lachelle Marquez RN) 49e. Infertility Treatment: No (02/17/2020 17:57:Lachelle Marquez RN) Mother's Height 50b. Height Inches: 72 (04/13/2020 05:22:QS system process) Mother's Weight 51a. Pre- Weight (lbs): 190 (02/17/2020 17:57:Lachelle Marquez RN) 51b. Weight at Delivery (lbs): 224 (04/13/2020 04:33:QS system process) Infections Present/Treated 53a. Gonorrhea: No (02/17/2020 17:57:Lachelle Marquez RN) Results this Hospital Visit : Negative (02/17/2020 17:57:Lachelle Marquez RN) 53b. Syphilis: No (02/17/2020 17:57:Lachelle Marquez RN) 53c. Chlamydia: No (02/17/2020 17:57:Lachelle Marquez RN) Results this Hospital Visit: Negative (02/17/2020 17:57:Lachelle Marquez RN) 53d. Hepatitis B: No (02/17/2020 17:57:Lachelle Marquez RN) Results this Hospital Visit: Negative (02/17/2020 17:57:Lachelle Marquez RN) 53e. Hepatitis C: Negative (02/17/2020 17:57:Lachelle Marquez RN) 53h. Mother Tested for HBsAG: Yes (02/17/2020 17:57:Lachelle Marquez RN) 53i. Date Tested: 10/17/2019 00:00 (02/17/2020 17:57:Lachelle Marquez RN) 53j. Test Result: Negative (02/17/2020 17:57:Lachelle Marquez RN) Obstetric Procedures 54a, b, c. Obstetric Procedures: Ultrasound; NST (02/17/2020 17:57:Lachelle Marquez RN) Onset of Labor 56a. PROM >12 Hrs: 0.00 (02/17/2020 17:57:QS system process) 57a. Induction of Labor: N/A (02/17/2020 17:57:Patrizia White RN) 57c. Non-Vertex Presentation A: Vertex (02/17/2020 17:57:Patrizia White RN) 57d. Steroids - Lung Mat: None (02/17/2020 17:57:Patrizia White RN) 57d. Steroids - Lung Mat: Not Applicable (02/17/2020 17:57:Patrizia White RN) 57g. Moderate/Heavy Meconium: Clear (02/17/2020 17:57:Patrizia White RN) 57h. Intolerance of Labor: Repeat Elective (02/17/2020 17:57:Patrizia White RN) 57i. Epidural/Spinal Anesthesia: None (02/17/2020 17:57:Patrizia White RN) Method of Delivery 58a. Forceps - Unsuccessful A: N/A (02/17/2020 17:57:Patrizia White RN) 58b. Vacuum - Unsuccessful A: N/A (02/17/2020 17:57:Patrizia White RN) 58c. Presentation at 58c. Presentation at - A : Vertex (02/17/2020 17:57:Patrizia White RN) 58c. Presentation at - A : N/A (02/17/2020 17:57:Patrizia White RN) 58c. Presentation at - A : Cephalic (02/17/2020 17:57:Patrizia White RN) Final Route and Method of Del 58d. Baby A Route/Delivery: (02/17/2020 17:57:Patrizia White RN) 58e. Trial of Labor Attempted: No (02/17/2020 17:57:Patrizia White RN) 58e. Trial of Labor Attempted A: N/A (02/17/2020 17:57:Patrizia White RN) 58e. Trial of Labor Attempted B: N/A (02/17/2020 17:57:Patrizia White RN) Maternal Morbidity 59b. 3rd or 4th Degree Lacs: None (02/17/2020 17:57:Patrizia White RN) Birthweight Baby A: 3565 (02/17/2020 17:57:Brissa Desouza RN) 60a. Pounds : 7 (02/17/2020 17:57:QS system process) 60b. Ounces: 14 (02/17/2020 17:57:QS system process) 61. GA at Delivery Baby A: 39.2 (02/17/2020 17:57:Patrizia White RN) : Full Term- 39- 40.6 Weeks (02/17/2020 17:57:QS system process) 62a. 5 Minute Baby A: 9 (02/17/2020 17:57:QS system process)
--- NOTE | 2020-04-13 09:39 | Warning Signs in Babies ---
VOD Warning Signs Datetime Report Generated by [facility]: 04/13/2020 09:39 VOD#608 -Warning Signs in Babies: Viewed with Parent(s)/Family (02/17/2020 17:57:Brissa Desouza RN)
--- NOTE | 2020-04-13 09:39 | Delivery Summary ---
Del Sum A-C Datetime Report Generated by CPN: 04/13/2020 09:39 DELIVERY PERSONNEL DELIVERY PERSONNEL: [id number] Delivery Doctor:: Irma Llamas MD SIDE LASTER STAPLE:: Carlos Gan CRNA Scheduler:: Brissa Desouza RN Top Cager:: Dr. Chata Becerril Nurse Practitioner:: VERNA Badillo Property Damage Claims Adjustor/CHIEF DIETITIAN: ST Shahab Property Damage Claims Adjustor/CHIEF DIETITIAN: Jennifer Bejarano CST Additional Personnel: : Marine Booth CST MATERNAL INFORMATION Delivery Anesthesia: Spinal Medications After Delivery: Pitocin Bolus-Please Comment; Pitocin 30 Units in 500ml NS/D5W Meds After Delivery Comment: 20units pitocin in 1000mLs LR open bolus followed by 30 units in 500mLs NS @ 125mLs Delivery QBL: 595 Maternal Complications: None LABOR SUMMARY EDC: 04/18/2020 00:00 Attempted: No Labor Anesthesia: None LABOR INFORMATION Reason for Induction: Not Applicable Oxytocin: N/A Group B Beta Strep: negative Steroids Given: None Reason Steroids Not Administered: Not Applicable MEMBRANES Membranes Rupture Method: Artificial Rupture of Membranes: 04/13/2020 08:20 Length of Rupture (hr): 0.00 Amniotic Fluid Color: Clear Amniotic Fluid Amount: Moderate Amniotic Fluid Odor: Normal STAGES OF LABOR Stage 3 hr: 0 Stage 3 min: 2 VAGINAL DELIVERY Episiotomy: None Laceration #1: None Laceration Extension #1: N/A Sponge Count Correct: N/A Sharps Count Correct: N/A CSECTION DELIVERY Primary Indication: Repeat Elective CSection Urgency: Scheduled CSection Incidence: Repeat Labor: No Labor Elective: Nonelective CSection Incision: Lower Uterine Transverse BABY A INFORMATION Delivery Date/Time: 04/13/2020 08:20 Method of Delivery: Nurse Controlled Delivery: No Born in Route : No : N/A Forceps: N/A Vacuum Extraction: N/A Shoulder Dystocia : No PRESENTATION/POSITION BABY A Presentation: Cephalic Cephalic Presentation: Vertex Breech Presentation: N/A PLACENTA INFORMATION BABY A Placenta Delivery Time : 04/13/2020 08:22 Placenta Method of Delivery: Manual Removal Placenta Status: Delivered SCORES BABY A Heart Rate 1 min: >100 bpm Resp Effort 1 min: Good Cry Reflex Irritability 1 min: Cough or Sneeze or Pulls Away Muscle Tone 1 min: Active Motion Color 1 min: Body [place], Extremities Blue Resuscitation Effort 1 min: Tactile Stimulation SCORE 1 MIN: 9 Heart Rate 5 min: >100 bpm Resp Effort 5 min: Good Cry Reflex Irritability 5 min: Cough or Sneeze or Pulls Away Muscle Tone 5 min: Active Motion Color 5 min: Body [place], Extremities Blue Resuscitation Effort 5 min: Tactile Stimulation SCORE 5 MIN: 9 INFANT INFORMATION BABY A Gestational Age at Delivery: 39.2 Gestational Status: Full Term- 39- 40.6 Weeks Outcome : Liveborn Infant Condition : Stable Infant Sex: Female IDENTIFICATION BABY A Verification Date/Time: 04/13/2020 08:24 ID Band Number: [id number] Mother's Name Verified: Yes Infant RN Verifying : Melvin Desouza NICOLETTE Additional Verifying Personnel: Siva CatoosaNICOLETTE lama WEIGHT/LENGTH BABY A Infant Birthweight (gm): 3565 Infant Weight (lb): 7 Weight (oz): 14 Length (in): 20.50 Infant Length (cm): 52.07 CORD INFORMATION BABY A No. Cord Vessels: 3 Nuchal Cord : N/A Cord Blood Taken: Yes-For Eval (Mom's Blood Type - or O+) Suction: Mouth; Nose ASSESSMENT BABY A Skin to Skin: Yes BABY B INFORMATION : N/A
[2020-04-13] MEDS: KETOROLAC TROMETHAMINE INJ/PF 30 MG/1 ML SDV IV SCH ×2 (10:17→17:46)
[2020-04-13] MEDS: OXYCODONE-ACETAMINOPHEN 5-325 MG TABLET PO PRN ×2 (10:18→15:36)
[2020-04-13] MEDS: PRENATAL VITAMIN W DHA CAPSULE PO SCH (10:29)
[2020-04-13] MEDS: DOCUSATE SODIUM 100 MG CAPSULE PO SCH ×2 (10:29→17:47)
[2020-04-13] MEDS: SIMETHICONE 80 MG TAB.CHEW PO PRN (23:28)
[2020-04-14] MEDS: OXYCODONE-ACETAMINOPHEN 5-325 MG TABLET PO PRN ×3 (01:12→14:16)
[2020-04-14] MEDS: KETOROLAC TROMETHAMINE INJ/PF 30 MG/1 ML SDV IV SCH (01:14)
[2020-04-14] MEDS ORDERED: FAMOTIDINE 20 MG TABLET PO ONE (02:00)
[2020-04-14 06:31] LABS: HEMATOCRIT 30.4 % (36.0-47.0); HEMOGLOBIN 10.3 g/dL (12.0-15.5); MEAN CORPUSCULAR HEMOGLOBIN 26.6 pg (27.0-33.4); MEAN CORPUSCULAR VOLUME 78 fl (80-97); PLATELET COUNT 229 10^3/uL (150-450); RED BLOOD COUNT 3.89 10^6/uL (3.72-5.28); WHITE BLOOD COUNT 8.9 10^3/uL (4.0-10.5)
[2020-04-14] MEDS: SIMETHICONE 80 MG TAB.CHEW PO PRN ×2 (08:23→22:53)
[2020-04-14] MEDS: IBUPROFEN 800 MG TABLET PO SCH ×3 (10:04→22:44)
[2020-04-14] MEDS: DOCUSATE SODIUM 100 MG CAPSULE PO SCH ×2 (10:04→18:00)
[2020-04-14] MEDS: PRENATAL VITAMIN W DHA CAPSULE PO SCH (10:04)
--- NOTE | 2020-04-14 15:03 | PDOC PROGRESS REPORT ---
Subjective-OB Progress Note for:: 04/14/20 Subjective: 24yo s/p repeat with tubal ligation ppd 1. Pt reports pain well controlled with medication, had bowel movement this morning, voiding without difficulty. No concerns at this time. Physical Exam (OB) Vital Signs: Temp Pulse Resp BP Pulse Ox 98.0 F 83 18 106/57 L 98 04/14/20 11:18 04/14/20 11:18 04/14/20 11:18 04/14/20 11:18 04/14/20 11:18 Intake & Output 04/13/20 04/14/20 04/15/20 06:59 06:59 06:59 Intake Total 540 640 Output Total 2675 800 Balance -2135 -160 Weight 102 kg - General General Appearance: Appears well In distress: None - PIH/Pre-Eclampsia DTR's: 1 + Clonus: Negative Headache: Absent Epigastric Pain: No Visual Changes: No - Dressing Removed: No - opsite Incision: Well Approximated Closure Type: Opsite - Maternal Morbidity 59. Maternal Morbidity (serious complications experinced by the mother associated with labor and delivery: None of the above - Lochia Lochia Amount: Small 10-25 ml Lochia Color: Rubra/Red - Abdomen Description: Soft, Round Hernia Present: No Fundal Description: Firm, Midline Describe if Not Midline: to rt, see hx Fundal Height: u/u - u/2 - Respiratory Respiratory Status: No respiratory distress - Extremities Upper extremity: Normal inspection Lower extremities: Normal inspection - Neurological Cognition: Normal Orientation: AAOx4 - Psychological Associated symptoms: Normal affect, Normal mood Objective-Diagnostic Laboratory: 04/14/20 06:24 04/14/20 06:24 WBC 8.9 RBC 3.89 Hgb 10.3 L Hct 30.4 L MCV 78 L MCH 26.6 L MCHC 34.0 RDW 16.0 H Plt Count 229 Assessment and Plan(PN) - Assessment and Plan (1) Status post repeat low transverse section Is this a current diagnosis for this admission?: Yes Plan: routine pp care (2) Encounter for tubal ligation Is this a current diagnosis for this admission?: Yes Plan: routine pp care (3) Anemia due to acute blood loss Is this a current diagnosis for this admission?: Yes Plan: increase dietary iron and FeSO4 bid - Time Spent with Patient Time with patient: Less than 15 minutes Medications reviewed and adjusted accordingly: Yes - Disposition Anticipated Discharge Disposition: Home, Self Care Anticipated Discharge Timeframe: within 24 hours
[2020-04-14] MEDS: FAMOTIDINE 20 MG TABLET PO SCH (16:00)
[2020-04-15] MEDS: IBUPROFEN 800 MG TABLET PO SCH ×2 (03:58→09:43)
[2020-04-15] MEDS: FAMOTIDINE 20 MG TABLET PO SCH (09:43)
[2020-04-15] MEDS: PRENATAL VITAMIN W DHA CAPSULE PO SCH (09:43)
[2020-04-15] MEDS: DOCUSATE SODIUM 100 MG CAPSULE PO SCH (09:44)
--- NOTE | 2020-04-15 09:45 | PDOC DISCHARGE SUMMARY ---
Impression - Admit/DC Date/PCP Admission Date/Primary Care Provider: 04/13/20 04:32 TERESA ORDOÑEZ MD Discharge Date: 04/15/20 - Discharge Diagnosis (1) Anemia due to acute blood loss Is this a current diagnosis for this admission?: Yes (2) Encounter for tubal ligation Is this a current diagnosis for this admission?: Yes (3) Status post repeat low transverse section Is this a current diagnosis for this admission?: Yes - Additional Information Resuscitation Status: Full Code Discharge Diet: Regular Discharge Activity: Balance Activity w/Rest, Pelvic Rest Referrals: TERESA ORDOÑEZ MD [Primary Care Provider] - Prescriptions: Oxycodone HCl/Acetaminophen [Percocet 5-325 mg Tablet] 1 tab PO Q4HP PRN #30 tablet PRN Reason: For Pain Scale 3-5 Ibuprofen [Motrin 800 mg Tablet] 800 mg PO Q8HP PRN #60 tablet PRN Reason: Home Medications: 105/Iron/Folic AC/Dha [Vitatrue Combo Pack] 1 tab PO DAILY 04/18/17 Ibuprofen [Motrin 800 mg Tablet] 800 mg PO Q8HP PRN #60 tablet 04/15/20 Oxycodone HCl/Acetaminophen [Percocet 5-325 mg Tablet] 1 tab PO Q4HP PRN #30 tablet 04/15/20 HPI Reason(s) for Admission: Ceasarean Section-Repeat Procedures: None Intrapartum Procedure(s): : Low Cervical, Transverse Hospital Course 59. Maternal Morbidity (serious complications experinced by the mother associated with labor and delivery: None of the above Results Laboratory Results: WBC 8.9 10^3/uL (4.0-10.5) 04/14/20 06:24 RBC 3.89 10^6/uL (3.72-5.28) 04/14/20 06:24 Hgb 10.3 g/dL (12.0-15.5) L 04/14/20 06:24 Hct 30.4 % (36.0-47.0) L 04/14/20 06:24 MCV 78 fl (80-97) L 04/14/20 06:24 MCH 26.6 pg (27.0-33.4) L 04/14/20 06:24 MCHC 34.0 g/dL (32.0-36.0) 04/14/20 06:24 RDW 16.0 % (11.5-14.0) H 04/14/20 06:24 Plt Count 229 10^3/uL (150-450) 04/14/20 06:24 Lymph % (Auto) 19.5 % (13-45) 04/12/20 12:40 [place] % (Auto) 4.9 % (3-13) 04/12/20 12:40 Eos % (Auto) 1.3 % (0-6) 04/12/20 12:40 Baso % (Auto) 0.2 % (0-2) 04/12/20 12:40 Absolute Neuts (auto) 4.5 10^3/uL (1.7-8.2) 04/12/20 12:40 Absolute Lymphs (auto) 1.2 10^3/uL (0.5-4.7) 04/12/20 12:40 Absolute Monos (auto) 0.3 10^3/uL (0.1-1.4) 04/12/20 12:40 Absolute Eos (auto) 0.1 10^3/uL (0.0-0.6) 04/12/20 12:40 Absolute Basos (auto) 0.0 10^3/uL (0.0-0.2) 04/12/20 12:40 Seg Neutrophils % 74.1 % (42-78) 04/12/20 12:40 Urine Color YELLOW 04/08/20 07:41 Urine Appearance CLEAR 04/08/20 07:41 Urine pH 7.0 (5.0-9.0) 04/08/20 07:41 Ur Specific [place] 1.005 04/08/20 07:41 Urine Protein NEGATIVE mg/dL (NEGATIVE) 04/08/20 07:41 Urine Glucose (UA) NEGATIVE mg/dL (NEGATIVE) 04/08/20 07:41 Urine Ketones NEGATIVE mg/dL (NEGATIVE) 04/08/20 07:41 Urine Blood NEGATIVE (NEGATIVE) 04/08/20 07:41 Urine Nitrite NEGATIVE (NEGATIVE) 04/08/20 07:41 Urine Bilirubin NEGATIVE (NEGATIVE) 04/08/20 07:41 Urine Urobilinogen NEGATIVE mg/dL (<2.0) 04/08/20 07:41 Ur Leukocyte Esterase NEGATIVE (NEGATIVE) 04/08/20 07:41 Urine WBC (Auto) 1 /HPF 04/08/20 07:41 Urine RBC (Auto) 1 /HPF 04/08/20 07:41 Urine Bacteria (Auto) 1+ /HPF 04/08/20 07:41 Squamous Epi Cells Auto 1 /HPF 04/08/20 07:41 Urine Mucus (Auto) RARE /LPF 04/08/20 07:41 Urine Ascorbic Acid NEGATIVE (NEGATIVE) 04/08/20 07:41 Urine Opiates Screen NEGATIVE 04/08/20 07:41 Urine Methadone Screen NEGATIVE 04/08/20 07:41 Ur Barbiturates Screen NEGATIVE 04/08/20 07:41 Ur Phencyclidine Scrn NEGATIVE 04/08/20 07:41 Ur Amphetamines Screen NEGATIVE 04/08/20 07:41 U Benzodiazepines Scrn NEGATIVE 04/08/20 07:41 Urine Cocaine Screen NEGATIVE 04/08/20 07:41 U Marijuana (THC) Screen NEGATIVE 04/08/20 07:41 COVID-19 Source NASOPHARYNGEAL 04/08/20 07:48 COVID-19 (VIRGIL) NOT DETECTED 04/08/20 07:48 Blood Type O POSITIVE 04/12/20 12:40 Antibody Screen NEGATIVE 04/12/20 12:40 Plan Plan of Treatment: f/u at [facility] for incision check Time Spent: Less than 30 Minutes
[2020-04-15 09:46] LABS: C DIFFICILE GDH NEGATIVE (NEGATIVE)
[2020-04-15 12:12] VITALS: BP 129/86
== END 2020-04-15 13:02 | disposition home or self-care (01) | DRG 784 ==
LOC: 2S 04:32
PROVIDERS: ADMIT Obstetrics & Gynecology; ATTEND Obstetrics & Gynecology
PROC: 10D00Z1 Extraction of Products of Conception, Low, Open Approach (ICD-10-PCS; principal; 2020-04-13)
PROC: 0UL70CZ Occlusion of Bilateral Fallopian Tubes with Extraluminal Device, Open Approach (ICD-10-PCS; 2020-04-13)
PROC: 10907ZC Drainage of Amniotic Fluid, Therapeutic from Products of Conception, Via Natural or Artificial Opening (ICD-10-PCS; 2020-04-13)
DX: O34.211 Maternal care for low transverse scar from previous cesarean delivery (principal); Z30.2 Encounter for sterilization; D62 Acute posthemorrhagic anemia; O90.81 Anemia of the puerperium; O34.03 Maternal care for unspecified congenital malformation of uterus, third trimester; Z03.818 Encounter for observation for suspected exposure to other biological agents ruled out; Q51.3 Bicornate uterus; Z3A.39 39 weeks gestation of pregnancy; Z37.0 Single live birth
CPT/HCPCS: 1961; 36415; 59025; 80307; 81001; 85025; 85027; 86850; 86900; 86901; 87324; 87449; 87635; 94760; 94799; C9803; J0690; J1885; J2250; J2370; J2405; J2590; J3490; J7120